=== PATIENT | male | born 1955 | race Caucasian/White ===

== ENCOUNTER → 2016-12-17 | Outpatient (REF) | payer OTHER | LOC: M LAB REF 12:46 | PROVIDERS: ATTEND Nurse Practitioner Adult Health | DX: R03.0 Elevated blood-pressure reading, without diagnosis of hypertension (principal); I25.10 Atherosclerotic heart disease of native coronary artery without angina pectoris ==

== ENCOUNTER → 2017-07-22 | Outpatient (REF) | payer BC ==
[2017-07-22 14:20] LABS: BLOOD UREA NITROGEN 21 MG/DL (7-18); GLOMERULAR FILTRATION RATE > 60.0 (>49)
== END ==
LOC: M LABDRAW1 13:42
PROVIDERS: ATTEND Physician Assistant Surgical
DX: S93.401A Sprain of unspecified ligament of right ankle, initial encounter (principal); W18.30XA Fall on same level, unspecified, initial encounter; Y92.009 Unspecified place in unspecified non-institutional (private) residence as the place of occurrence of the external cause

== ENCOUNTER → 2019-03-10 | Outpatient (REF) | payer BC | LOC: M LAB REF 16:26 | PROVIDERS: ATTEND Nurse Practitioner Adult Health | DX: J31.0 Chronic rhinitis (principal) ==

== ENCOUNTER → 2020-03-11 | Outpatient (CLI) | payer MEDICARE, BC | LOC: M LABSMTC 09:59 | PROVIDERS: ATTEND Family Medicine | DX: Z11.59 Encounter for screening for other viral diseases (principal); Z20.828 Contact with and (suspected) exposure to other viral communicable diseases ==

== ENCOUNTER → 2021-04-26 | Outpatient (CLI) | payer MEDICARE, BC ==
[~2021-04-26] MED LIST: ISOVUE-370 76% 100ML VIAL As Ordered ONE
--- NOTE | 2021-04-26 11:23 | REPVR ---
PROCEDURE INFORMATION: Exam: CT Angiography Abdomen With Contrast Exam date and time: 04/26/2021 10:24 AM Age: 65 years old Clinical indication: Other: Aaa; Additional info: Eval for aaa TECHNIQUE: Imaging protocol: Computed tomographic angiography images of the abdomen with intravenous contrast material. 3D rendering (Not supervised by radiologist): MIP and/or 3D reconstructed images were created by the technologist. Radiation optimization: All CT scans at this facility use at least one of these dose optimization techniques: automated exposure control; mA and/or kV adjustment per patient size (includes targeted exams where dose is matched to clinical indication); or iterative reconstruction. Contrast material: ISOVUE 370; Contrast volume: 100 ml; Contrast route: INTRAVENOUS (IV); COMPARISON: No relevant prior studies available. FINDINGS: Mediastinum: There is a small hiatal hernia. Aorta: There is atherosclerotic disease of the aorta and proximal iliac arteries without evidence of aneurysm. Celiac trunk and mesenteric arteries: No occlusion or significant stenosis. Renal arteries: No occlusion or significant stenosis. Liver: The liver is moderately fatty enlarged. Gallbladder and bile ducts: Normal. No calcified stones. No ductal dilation. Pancreas: Normal. No ductal dilation. Spleen: Normal. No splenomegaly. Adrenals: Normal. No mass. Kidneys and ureters: Subcentimeter small renal cysts are noted involving the right kidney. Stomach and bowel: Unremarkable. No obstruction. No mucosal thickening. Lymph nodes: Unremarkable. No enlarged lymph nodes. Intraperitoneal space: Unremarkable. No free air. No significant fluid collection. Bones/joints: Arthritic changes are seen in the spine most severe at L5/S1. Soft tissues: Unremarkable. IMPRESSION: 1. Mild atherosclerotic disease without evidence of aneurysm dissection. 2. Renal cysts. No further workup recommended. Electronically signed by: Solomon Gonsalez On 04/26/2021 11:22:40 AM
== END ==
LOC: M RAD 09:57
PROVIDERS: ATTEND Nurse Practitioner Adult Health
DX: N28.1 Cyst of kidney, acquired (principal); I25.10 Atherosclerotic heart disease of native coronary artery without angina pectoris; Z87.891 Personal history of nicotine dependence
CPT/HCPCS: 74175; Q9967

== ENCOUNTER → 2022-03-04 | Outpatient (CLI) | payer MEDICARE, BC | LOC: M WUC 12:57 | PROVIDERS: ATTEND Internal Medicine | DX: M25.522 Pain in left elbow (principal) ==

== ENCOUNTER → 2022-06-06 | Outpatient (CLI) | payer MEDICARE, BC | LOC: M WUC 10:55 | PROVIDERS: ATTEND Nurse Practitioner Adult Health | DX: D86.9 Sarcoidosis, unspecified (principal) ==

== ENCOUNTER → 2023-04-17 | Outpatient (CLI) | payer MEDICARE, BC | LOC: M WUC 10:22 | PROVIDERS: ATTEND Nurse Practitioner Adult Health | DX: M79.645 Pain in left finger(s) (principal); M79.89 Other specified soft tissue disorders; M19.042 Primary osteoarthritis, left hand ==

== ENCOUNTER 2024-03-03 12:41 | Day surgery (SDC) | payer OTHER ==
[~2024-03-03] VITALS: Ht 162.6 cm; Wt 74.1 kg
[2024-03-03] MEDS: NS 1,000 ML IV ONE (06:00)
[~2024-03-03 12:41] MED LIST changes: +ASPI81TA26 PO; +ATOR40TA75 PO; -ISOVUE-370 76% 100ML VIAL As Ordered ONE; +TERB250T91 PO; +THERTAB52 PO
[2024-03-03 14:12] VITALS: TEMP 97.2
[2024-03-03] MEDS: ONDANSETRON 4MG 2ML VIAL IV ONE (14:37)
[2024-03-03 14:47] VITALS: BP 120/65; O2SAT 96
== END 2024-03-03 14:58 | disposition home or self-care (01) ==
LOC: M OPP 12:41
PROVIDERS: ATTEND Internal Medicine Gastroenterology
DX: Z12.11 Encounter for screening for malignant neoplasm of colon (principal); Z80.0 Family history of malignant neoplasm of digestive organs; K64.0 First degree hemorrhoids; K57.30 Diverticulosis of large intestine without perforation or abscess without bleeding; I25.10 Atherosclerotic heart disease of native coronary artery without angina pectoris; Z86.74 Personal history of sudden cardiac arrest; Z79.02 Long term (current) use of antithrombotics/antiplatelets; Z79.82 Long term (current) use of aspirin; Z79.899 Other long term (current) drug therapy
CPT/HCPCS: G0105; J2405

== ENCOUNTER → 2024-09-02 | Outpatient (CLI) | payer OTHER | LOC: M RAD 13:17 | PROVIDERS: ATTEND Nurse Practitioner Family | DX: F17.200 Nicotine dependence, unspecified, uncomplicated (principal) ==